=== PATIENT | female | born 1965 | race Caucasian/White ===

== ENCOUNTER → 2017-01-29 | Outpatient (CLI) | payer BC | END | disposition home or self-care (01) | LOC: EKG 01-28 13:00 → RAD 08:58 → RES 11:00 → EKG 12:00 | DX: K80.20 Calculus of gallbladder without cholecystitis without obstruction (principal); D18.03 Hemangioma of intra-abdominal structures; K76.0 Fatty (change of) liver, not elsewhere classified; R06.02 Shortness of breath | CPT/HCPCS: 71020; 76705; 93005; 93306; 94060; 94726; 94729 ==